=== PATIENT | female | born 1945 | race Caucasian/White ===

== ENCOUNTER 2016-11-25 12:26 | Inpatient (IN) | payer OTHER ==
[2016-11-26] MEDS ORDERED: NORMAL SALINE 10 ML SYRINGE FLUSH IVP PRN (14:30)
[2016-11-26] MEDS ORDERED: CALCIUM CARBONATE 500 MG (TUMS) CHEWABLE TABLET PO PRN (14:30)
[2016-11-26] MEDS ORDERED: LIDOCAINE W/ SODIUM BICARB 0.5 ML SYR SUBD PRN (14:30)
[2016-11-26] MEDS ORDERED: ONDANSETRON 4 MG/2 ML VIAL IVP PRN (14:30)
[2016-11-26] MEDS ORDERED: ACETAMINOPHEN 325 MG TABLET PO PRN (14:30)
[2016-11-29] MEDS ORDERED: LIDOCAINE W/ SODIUM BICARB 0.5 ML SYR SUBD PRN (13:16)
[2016-11-29] MEDS ORDERED: NORMAL SALINE 10 ML SYRINGE FLUSH IVP PRN (13:16)
[2016-11-29] MEDS ORDERED: ONDANSETRON 4 MG/2 ML VIAL IVP PRN (13:16)
[2016-11-29 14:11] LABS: BUN/CREATININE RATIO 25.83 (6-20); CALCIUM 9.1 mg/dL (8.7-10.7)
--- NOTE | 2016-11-29 14:12 | PDOC ---
History and Physical - History of Present Illness Date and Time of Service: 11/29/2016 2:13 PM Chief Complaint: Left arm pain secondary to left humeral fracture that happened last week, patient was transferred from another hospital to have surgery here. History of Present Illness: This is a 71 years old female with medical history significant for history of diabetes, hypertension, hypothyroidism and hyperlipidemia who fell last Tuesday at home she said she rolled out of bed and hit the left shoulder against a dresser she remained she said maybe an hour on the floor before she was able to get up, the pain continued but she didn't present to a hospital until the next day. She presented to [facility] evaluation there revealed closed comminuted displaced left proximal humerus fracture, she was admitted there because she was unable to go home because of pain and in the ER there her blood sugar was 554 attributed to her not giving herself insulin because of the fracture. She was admitted there they put her on insulin and pain medication. The case was discussed with Dr. Angel who discussed it with a surgeon in [place] and they are planning for her to have surgery done on Tuesday. Patient was transferred here for that reason. She said her pain level was high en Route but now she doesn't have any pain. She lives by herself, she uses a cane she denied chest pain or shortness of breath. Her pain is mainly in the left arm and left shoulder with movement. There is a big bruise there. Last time she said she had a bowel movement was 5 days ago. In assessing her functional capacity she said she can climb more than 2 flights of stairs before the fall. Past Medical History Medical History: 1. Diabetes on insulin. 2. Hypertension. 3. Hypothyroidism. 4. Hyperlipidemia Surgical History: Skin cancer removed from left forearm Pertinent Family History: Diabetes in her grandfather and grandmother Past Social History: She smokes about 20 cigarettes a day, occasionally drink, no drugs. She lives in [place] sometimes her a 95-year-old mother stays with her. Her mother currently is in [place] with her other sister. Her son lives in [place] and the other daughter lives in [place]. Tobacco Use: Current Every Day Smoker Do you dip or chew tobacco: No Substance Use Type: None Alcohol Use: Occasionally Medication / Allergies Allergies/Adverse Reactions: Allergies Allergy/AdvReac Type Severity Reaction Status Date / Time NKDA AdvReac NOT Uncoded 11/29/16 18:33 APPLICABLE Review of Systems - Review of Systems All Systems: Reviewed & No Additional Complaints Except as Stated Exam - Vitals Vital Signs: Vital Signs Temperature 98.7 F Temperature Source Oral Pulse Rate [Apical] 70 Pulse Rate [Pulse Oximeter] 70 Respiratory Rate 20 Blood Pressure [Right Arm] 146/61 Pulse Ox 91 Oxygen Flow Rate 2L Oxygen Delivery Method Nasal Cannula Height 5 ft 1 in Weight 198 lb 11.2 oz - General General Appearance: POSITIVE: No Acute Distress, Cooperative, Obese Additional General Exam Details: Somewhat sleepy but arousable - Eye Eye Exam: POSITIVE: Normal Appearance - ENT ENT Exam: POSITIVE: Normal Exam - Neck Neck Exam: POSITIVE: Normal Inspection, No Lymphadenopathy - Respiratory Respiratory Exam: POSITIVE: Clear to Auscultation - Bilaterally - Cardiovascular Cardiovascular Exam: POSITIVE: RRR - GI/Abdominal GI/Abdominal Exam: POSITIVE: Normal Bowel Sounds, Non Tender, Non Distended, Soft - Rectal Rectal Exam: POSITIVE: Deferred - External Exam: POSITIVE: Deferred - Extremities Additional Extremities Exam Details: Deformity with bruising of the left upper forearm and the left side of the chest and on the side of the left breast - Back Back Exam: POSITIVE: Normal Inspection - Neurological Neurological Exam: POSITIVE: Alert, CN II-XII Intact Additional Neurological Exam Details: He knows the month the date and the year. She thought that today is Tuesday. However she got Ativan and morphine before she came in. - Psychiatric Psychiatric Exam: POSITIVE: Normal Affect - Integumentary Additional Integumentary Exam Details: Bruise noted on the left upper forearm and the left upper chest and breasts. Few bruises on the right forearm. Results - Labs CBC and BMP: 11/29/16 13:57 11/29/16 13:57 - EKG Data -: EKG Interpreted by Me Rate: Normal - EKG Data EKG Interpretation: Other (Poor R-wave progression in the anterior leads) - Imaging Status: Report Reviewed by Me (Chest x-ray done at the other hospital was negative for specific acute cardiopulmonary pathology. Left glenohumeral fracture/dislocation. Left humerus x-ray showed comminuted fracture through the humeral head and neck. There is a displaced fracture segment. There is a dislocation of the shoulder as well. CT of the upper extremity showed comminuted to humeral head and neck fracture with the fracture fragment displacement and slight subluxation of the joint) Assessment and Plan - Patient Problems (1) Left humeral fracture Current Visit: Yes Status: Acute Comment: Discussed with Dr. Angel, he will see the patient. Per my discussion with him surgery will be done by Dr. Harkins from [facility] the plan is to have it done on Tuesday. Will order some lab test and write for pain medications. Estimating her revised Mackay cardiac risk index she has one risk factor that I can see which is diabetes requiring insulin, the EKG shows maybe 1 Q waves in lead 3 and regarding the anterior leads it's more like poor R-wave progression I think, if we count only diabetes here risk is 1% if we consider the EKG abnormal although I don't see pathological Q-wave her rate for adverse events is 2.4% to 3.6%. Her highest creatinine is 1.7. We will repeat today. Since her functional capacity is more than 4 Mets the guideline suggest no further testing so we'll follow the recommendation. Besides in discussing risks with her she said she will not do a stress test anyway (2) Diabetes Current Visit: Yes Status: Acute Comment: We will put her on Lantus and sliding scale (3) Hypertension Current Visit: Yes Status: Acute Comment: Continue previous medications for now. We may hold the ramipril on the day of the surgery (4) Hypothyroidism Current Visit: Yes Status: Acute Comment: Same medications (5) Chronic renal failure, stage 3 (moderate) Current Visit: Yes Status: Acute Comment: Per my discussion with the hospitalist at [place] she has chronic renal failure and her creatinine is similar to her previous baseline. Repeat her labs today. (6) Confusion Current Visit: Yes Status: Acute Comment: The notes from my weekend described episode of confusion at their hospital this may be medication related but I think will do CAT scan of her head. Photo / Body Diagrams - Uploaded Photos Uploaded Photos:
[2016-11-29] MEDS: Lactated Ringers 1,000 ML PRIMARY IV SCH ×4 (14:20→14:45)
[2016-11-29 14:21] LABS: BASOPHILS % (AUTO) 0.3 % (0-1); EOSINOPHILS % (AUTO) 1.8 % (0-8); HEMOGLOBIN 12.3 g/dL (12.0-16.0); LYMPHOCYTES # (AUTO) 1.25 10*3/uL; MEAN CORPUSCULAR HEMOGLOBIN 29.6 PG (27-31); MEAN CORPUSCULAR HGB CONC 32.4 g/dL (33-37); MEAN CORPUSCULAR VOLUME 91.3 FL (81-99); MEAN PLATELET VOLUME 10.9 FL (7.4-12.2); MONOCYTES # (AUTO) 1.18 10*3/UL (0.3-0.8); MONOCYTES % (AUTO) 12.7 % (5-15); NEUTROPHILS # (AUTO) 6.65 10*3/UL; NEUTROPHILS % (AUTO) 71.4 % (50-80); RED BLOOD COUNT 4.16 10^6/uL (4.20-5.40)
[2016-11-29 14:22] LABS: BASOPHILS # (AUTO) 0.03 10*3/UL; EOSINOPHILS # (AUTO) 0.17 10*3/UL; PLATELET MORPHOLOGY COMMENT NORMAL MORPHOLOGY (NORM); RBC MORPHOLOGY COMMENT NORMAL MORPHOLOGY (NORM); WBC MORPHOLOGY COMMENT NORMAL MORPHOLOGY (NORM)
--- NOTE | 2016-11-29 16:13 | EKG ---
[address] [place] [address] Measurements Intervals [place] Rate: 68 P: 53 LA: 151 QRS: 13 QRSD: 85 T: 43 QT: 412 QTc: 430 Interpretive Statements SINUS RHYTHM POSSIBLE ANTERIOR MYOCARDIAL INFARCTION [30 ms Q WAVE IN V3/V4, OR R < 0.2 mV IN V4], OF INDETERMINATE AGE No previous ECG available for comparison Electronically Signed On 11-29-16 17:03:38 MDT by Zechariah Matthew MD [email or web address]
--- NOTE | 2016-11-29 17:42 | DI ---
HISTORY: Confusion. COMPARISON: None available. TECHNIQUE: Contiguous axial unenhanced images of the brain were obtained from the skull base through the vertex and submitted for interpretation. FINDINGS: The ventricles and sulci are within normal limits in size for the patient's age. There is no evidence of acute intracranial hemorrhage, mass effect, midline shift, or extra-axial fluid colle ction. No abnormal increased or decreased areas of attenuation are seen within the brain. There are no depressed calvarial fractures. The orbits and visualized facial bones are intact. The imaged paranasal sinuses are unremarkable as seen. IMPRESSION: 1. No evidence of acute intracranial abnormality. NOTIFICATION: The above report was sent to Fadia Sharp on 11/29/2016 at 08:11 PM EST.
[2016-11-29] MEDS: Insulin Lispro Flexpen 300 UNIT/3 ML INSULN.PEN SUBCUT SCH (18:19)
[2016-11-29] MEDS: oxyCODONE-ACETAMINOPHEN 5-325 TAB PO PRN (18:49)
[2016-11-29] MEDS: ATORVASTATIN 40 MG TABLET PO SCH (20:12)
[2016-11-29] MEDS: DOCUSATE 100 MG CAPSULE PO SCH (20:13)
[2016-11-29] MEDS: Insulin Glargine SoloStar Inj 100 UNIT/ML INSULN.PEN SUBCUT SCH (20:13)
[2016-11-30] MEDS: oxyCODONE-ACETAMINOPHEN 5-325 TAB PO PRN ×6 (05:03→23:35)
[2016-11-30] MEDS: Insulin Lispro Flexpen 300 UNIT/3 ML INSULN.PEN SUBCUT SCH ×3 (07:52→16:37)
--- NOTE | 2016-11-30 08:40 | PDOC(PROG) ---
Date and Time of Service: 11/30/2016 8:36 AM Interval History: Subjective Patient denying new symptoms. Pain seemed to be controlled with current pain medications. The nurses did report some confusion last night, she doesn't seem to be confused today. Objective : Data - Labs CBC and BMP: 11/29/16 13:57 11/29/16 13:57 Labs - Last 24 Hours: Laboratory Results 11/29/16 11/30/16 Range/Units 13:57 06:10 WBC 9.32 (4.8-10.8) 10^3/uL RBC 4.16 L (4.20-5.40) 10^6/uL Hgb 12.3 (12.0-16.0) g/dL Hct 38.0 (37.0-47.0) % MCV 91.3 (81-99) FL MCH 29.6 (27-31) PG MCHC 32.4 L (33-37) g/dL RDW Std Deviation 48.6 (39-50) fL RDW Coeff of Neftali 14.9 H (11.5-14.5) % Plt Count 390 H (140-350) 10*3/uL MPV 10.9 (7.4-12.2) FL Immature Gran % (Auto) 0.4 (0-5) % Neut % (Auto) 71.4 (50-80) % Lymph % (Auto) 13.4 (10-50) % [place] % (Auto) 12.7 (5-15) % Eos % (Auto) 1.8 (0-8) % Baso % (Auto) 0.3 (0-1) % Immature Gran # (Auto) 0.04 10*3/UL Neut # (Auto) 6.65 10*3/UL Lymph # (Auto) 1.25 10*3/uL [place] # (Auto) 1.18 H (0.3-0.8) 10*3/UL Eos # (Auto) 0.17 10*3/UL Baso # (Auto) 0.03 10*3/UL WBC Morphology Comment Normal morphology (NORM) Plt Morphology Comment Normal morphology (NORM) RBC Morph Comment Normal morphology (NORM) PT 9.7 (9.7-11.4) secs INR 0.94 (0.00-5.90) N/A Sodium 131 L (135-145) meq/L Potassium 5.0 (3.8-5.2) meq/L Chloride 99 (98-112) meq/L Carbon Dioxide 24 (23-33) meq/L Anion Gap 8 (5-20) BUN 31 H (7-22) mg/dL Creatinine 1.2 (0.50-1.20) mg/dL Estimated GFR 44 (>60 ml/min/1.73m(2)) BUN/Creatinine Ratio 25.83 H (6-20) Glucose 233 H (78-110) mg/dL Calculated Osmolality 285.0 (267-292) mOsm/kg Calcium 9.1 (8.7-10.7) mg/dL Objective : Exam - General General Appearance: No Acute Distress, Cooperative, Obese - Head Head Exam: Normal Inspection, Atraumatic - Eye Eye Exam: Normal Appearance - ENT ENT Exam: Normal Exam - Neck Neck Exam: Normal Inspection - Respiratory Respiratory Exam: Clear to Auscultation - Bilaterally - Cardiovascular Cardiovascular Exam: RRR - GI/Abdominal GI/Abdominal Exam: Normal Bowel Sounds, Non Tender, Non Distended, Soft - Rectal Rectal Exam: Deferred - External Exam: Deferred - Extremities Additional Extremities Exam Details: Extensive ecchymosis to the left arm and shoulder. - Back Back Exam: Normal Inspection - Neurological Neurological Exam: Alert, Oriented x 3, CN II-XII Intact - Psychiatric Psychiatric Exam: Normal Affect Assessment and Plan - Patient Problems (1) Left humeral fracture Current Visit: Yes Status: Acute Comment: Discussed with Dr. Angel the plan is for surgery tomorrow. We'll keep her nothing by mouth after midnight tonight. (2) Diabetes Current Visit: Yes Status: Chronic Comment: I Think we'll continue with the insulin, will add D5 and a half after midnight tonight (3) Hypertension Current Visit: Yes Status: Chronic Comment: Continue same medication. Will hold ramipril on the day with surgery (4) Hypothyroidism Current Visit: Yes Status: Acute Comment: Same medications (5) Chronic renal failure, stage 3 (moderate) Current Visit: Yes Status: Chronic Comment: Creatinine seemed to be improved. (6) Confusion Current Visit: Yes Status: Acute Comment: This may be related to medications, will check a B12 level. CT scan was negative. And to get more information from family and see of the noticed any memory issues which may suggest an underlying dementia. Photo / Body Diagrams - Uploaded Photos Uploaded Photos:
[2016-11-30] MEDS: METOPROLOL SUCCINATE 100 MG SR 24H TABLET PO SCH (08:45)
[2016-11-30] MEDS: DOCUSATE 100 MG CAPSULE PO SCH ×2 (08:46→20:26)
[2016-11-30] MEDS: POLYETHYLENE GLYCOL 3350 17 GM POWDER PO SCH (08:47)
[2016-11-30] MEDS ORDERED: RAMIPRIL 2.5 MG CAPSULE PO SCH (09:00)
--- NOTE | 2016-11-30 16:47 | PTI REPORT ---
Thank you for the referral of Danitza Brandon. She was seen on 11/30/16 for an inpatient evaluation secondary to a left humeral fracture. SUBJECTIVE: The patient is a 71-year-old female who was referred by Dr. Escobedo secondary to a left humeral fracture. The patient states she lives alone in [place] in a trailer house where she slipped and fell a couple of days ago and broke her arm. She does not use any assistive devices but does have a cane and states she has fallen a couple of times over the last calendar year. She has three steps on one side of her trailer house to get in and four on the other side. She does not have any immediate family close to [facility] and has a son in [place] and a daughter in [place]. The patient was not wearing her arm sling due to pain and she states her arm sling creates pain and she has tried to wear it and be compliant for four days and it is just not working. She is scheduled for orthopedic surgery on that arm tomorrow morning. PAST MEDICAL HISTORY: Past medical history can be found in the patient's medical record. OBJECTIVE FINDINGS: General observations: The patient was alert and oriented when interviewed in her room this afternoon. She had just been given a pain pill a few minutes earlier. Pain: The patient rates her pain as a 6 or 7 out of 10 on the verbal analog scale (0=no pain, 10=worst pain). The patient states she has had a history of sore knees and a sore back and felt very stiff today. Bed mobility: The patient required moderate assist to come from supine to sit due to pain. Transfers: The patient required moderate assist to come from sit to stand. The patient did not really complain of pain during her transfer. The patient stood up with assist of one. Balance: Balance was poor and and will need supervision and assist of one at all times following the hospital. She is a MODERATE risk for falls. A Hooper score was not provided secondary to her pain medication and her shoulder pain. Ambulation: The patient ambulated to the doorway and back with maximum assist of one therapist hanging on to the right upper extremity. She would probably benefit from the use of a quad cane or shila walker. ASSESSMENT: Problem List: Increased pain Decreased balance Decreased ability to perform activities of daily living Decreased ability to perform transfers Short-Term Goals: To be met by discharge from inpatient: Patient will be able to perform bed mobility and transfers with stand by assistance. Patient will have a pain level less than or equal to 4/10 with activity. Patient will have balance of fair or greater. Patient will be able to ambulate household distances with least restrictive assistive device. Long-Term Goals: To be met following discharge from inpatient: Patient will be placed in the safest environment possible as independent as possible. TREATMENT PLAN: Patient will be seen B.I.D during the week and one time per day over the weekend as an inpatient for pain relief modalities as needed, transfers, ambulation, strengthening of lower extremities and right upper extremity, and functional activities. There will be discussion on proper discharge placement for her safest well being post operatively. INITIAL TREATMENT: Treatment today consisted of the initial evaluation activities only. FAHAD
[2016-11-30] MEDS: Insulin Glargine SoloStar Inj 100 UNIT/ML INSULN.PEN SUBCUT SCH (20:09)
[2016-11-30] MEDS: ATORVASTATIN 40 MG TABLET PO SCH (20:09)
[2016-12-01] MEDS ORDERED: D5-1/2NS 1,000 ML PRIMARY IV SCH ×2 (01:00→12:00)
[2016-12-01] MEDS ORDERED: Lactated Ringers 1,000 ML PRIMARY IV ONE (01:25)
[2016-12-01] MEDS ORDERED: BUPIVACAINE 0.25% W/ EPI - 10 ML VIAL ONE ×2 (05:54→06:58)
[2016-12-01] MEDS ORDERED: Vancomycin Inj 1gm vial ONE (05:55)
[2016-12-01] MEDS ORDERED: TRANEXAMIC ACID 1,000 MG / 10 ML VIAL ONE ×2 (05:55→06:05)
[2016-12-01] MEDS ORDERED: Sodium Chloride 0.9% 100 ML IV ONE (06:05)
[2016-12-01] MEDS ORDERED: Sodium Chloride 0.9% 0 ML ONE (06:16)
[2016-12-01] MEDS ORDERED: Sodium Chloride 0.9% 250 ML IV ONE (06:16)
[2016-12-01] MEDS ORDERED: LIDOCAINE W/ SODIUM BICARB 0.5 ML SYR ONE (06:20)
[2016-12-01] MEDS ORDERED: fentaNYL Inj 250 MCG/5 ML VIAL ONE (06:57)
[2016-12-01] MEDS ORDERED: cloNIDine HCL/PF 100 MCG/ML - 10 ML VIAL EPIDURAL ONE (06:57)
[2016-12-01] MEDS ORDERED: MIDAZOLAM 5 MG/1 ML ONE (06:58)
[2016-12-01] MEDS ORDERED: ROCURONIUM 10 MG/1 ML - 5 ML VIAL IVP ONE (07:19)
[2016-12-01] MEDS ORDERED: ceFAZolin Inj 2gm (Premix) 50 ML IV ONE (07:20)
--- NOTE | 2016-12-01 07:39 | ORTHO.PROG ---
Last Taken Vital Signs: Vital Signs - Last Taken Temperature 97.7 F 12/01/16 03:01 Pulse Rate 74 12/01/16 03:01 Respiratory Rate 20 12/01/16 03:01 Blood Pressure 156/68 12/01/16 03:01 Pulse Ox 1 12/01/16 04:55 Subjective: 71 yo RHD female s/p fall from bed sustaining an injury to the left shoulder. She has a neurovascularly intact left proximal humerus 4 part fracture dislocation. She was counseled extensively regarding the treatment options and is planned for a left shoulder reverse total shoulder arthroplasty. The risks, benefits, expected outcome, and required rehabilitation were discussed. All questions were answered. Informed consent was obtained. Gordon Harkins MD Orthopedic Surgery
[2016-12-01] MEDS ORDERED: ePHEDrine Inj 50 MG/ML AMP ONE (08:04)
[2016-12-01] MEDS ORDERED: ONDANSETRON 4 MG/2 ML VIAL ONE (09:44)
[2016-12-01] MEDS ORDERED: NORMAL SALINE 10 ML SYRINGE FLUSH IVP PRN ×4 (09:48→12:00)
[2016-12-01] MEDS ORDERED: PROMETHAZINE 25 MG/1 ML VIAL IM PRN ×2 (09:48→12:00)
[2016-12-01] MEDS ORDERED: HYDROmorphone 2 MG/1 ML IVP PRN ×2 (09:48→12:00)
[2016-12-01] MEDS ORDERED: fentaNYL Inj 100 MCG/2 ML VIAL IVP PRN ×2 (09:48→12:00)
--- NOTE | 2016-12-01 09:48 | CRNA.PROCE ---
Nerve Block Documentation - - Safety Measures: Time Out Taken, Site Verified - - Type of Nerve Block Used: Left Interscalene Block Position for Nerve Block: Supine Moniters Used During Block: EKG, SPO2, NIBP Oxygen Sumpplented: Yes Sedation Used - Enter Amount in Comment Field: Midazolam (mg): Yes (2mg iv), Fentanyl (mcg): Yes (50mcg iv) Skin Prep Used: ChloroPrep Technique: Nerve Stimulator Nerve Block Needle Used: 40 mm ProBlk II Stimulation Hz: 1.0 Stimulation Staring mA: 1.0 Stimulation Ending mA: 0.5 Local Anesthetic - Enter Amt in Comment Field: 0.25 % Bupivicaine with Epinephrine 1:200,000 (mL): Yes (30ml) Additives to Nerve Blocks: Clonidine (mg): Yes (.2mg)
[2016-12-01] MEDS ORDERED: Lactated Ringers 1,000 ML PRIMARY IV SCH ×2 (10:00→12:00)
[2016-12-01] MEDS ORDERED: Sodium Chloride 0.9% 1,000 ML PRIMARY IV SCH (12:00)
[2016-12-01] MEDS ORDERED: ONDANSETRON 4 MG/2 ML VIAL IVP PRN ×2 (12:00)
[2016-12-01] MEDS ORDERED: CALCIUM CARBONATE 500 MG (TUMS) CHEWABLE TABLET PO PRN (12:00)
[2016-12-01] MEDS ORDERED: LIDOCAINE W/ SODIUM BICARB 0.5 ML SYR SUBD PRN (12:00)
--- NOTE | 2016-12-01 12:24 | DI ---
AP VIEW OF THE LEFT SHOULDER, 12/01/2016 10:53 AM: Clinical History: Status post total reverse shoulder replacement secondary to a severely comminuted f racture of the humeral head and neck sustained on 11/24/2016. Previous Exam: None at this facility. Comparison is made with films of the left humerus dated 11/25/19 17, from [facility] [place], [place]. A single projection reveals the patient to be status post total left reverse shoulder replacement. Th e prosthetic device articulates normally. There is left lower lobe atelectasis. Readin. Status post total reverse shoulder replacement. The prosthetic device articulates normally. 2. Left lower lobe atelectasis.
[2016-12-01] MEDS: METOPROLOL SUCCINATE 100 MG SR 24H TABLET PO SCH (12:37)
[2016-12-01] MEDS: DOCUSATE 100 MG CAPSULE PO SCH ×2 (12:39→20:44)
[2016-12-01] MEDS: Insulin Lispro Flexpen 300 UNIT/3 ML INSULN.PEN SUBCUT SCH ×2 (12:40→16:43)
[2016-12-01] MEDS: POLYETHYLENE GLYCOL 3350 17 GM POWDER PO SCH (12:41)
--- NOTE | 2016-12-01 12:51 | PDOC(PROG) ---
Date and Time of Service: 12/01/2016 12:59 PM Interval History: Subjective Patient was seen after her surgery, she is denying complaint there is no pain, no shortness of breath and no nausea. Objective : Data - Labs CBC and BMP: 11/29/16 13:57 11/29/16 13:57 Labs - Last 24 Hours: Laboratory Results 11/30/16 Range/Units 06:00 Vitamin B12 598 ([id number]) pg/mL Objective : Exam - General General Appearance: No Acute Distress, Cooperative, Obese - Head Head Exam: Normal Inspection - Eye Eye Exam: Normal Appearance - ENT ENT Exam: Normal Exam - Neck Neck Exam: Normal Inspection - Respiratory Respiratory Exam: Clear to Auscultation - Bilaterally - Cardiovascular Cardiovascular Exam: RRR - GI/Abdominal GI/Abdominal Exam: Normal Bowel Sounds, Non Tender, Non Distended, Soft - Rectal Rectal Exam: Deferred - External Exam: Deferred - Extremities Additional Extremities Exam Details: Left arm pain and shoulder immobilizer - Back Back Exam: Normal Inspection - Neurological Neurological Exam: Alert, Oriented x 3, CN II-XII Intact - Psychiatric Psychiatric Exam: Normal Affect Assessment and Plan - Patient Problems (1) Left humeral fracture Current Visit: Yes Status: Acute Comment: Status post left total reverse hemiarthroplasty, PT and OT were ordered. I did talk to her and the family about maybe needing swing bed versus a rehabilitation somewhere else they will think about it. I did speak with our case monitor about it. I did speak with Dr. Harkins and he wanted to see her in 2 weeks from now. (2) Diabetes Current Visit: Yes Status: Chronic Comment: Same medications (3) Hypertension Current Visit: Yes Status: Chronic Comment: We'll hold off on the enalapril for now will resume the metoprolol tomorrow. (4) Hypothyroidism Current Visit: Yes Status: Acute Comment: Same med (5) Chronic renal failure, stage 3 (moderate) Current Visit: Yes Status: Chronic Comment: Repeat her labs tomorrow (6) Confusion Current Visit: Yes Status: Acute Comment: I did talk to the family they did say she did not have confusion before and this only was noticed after she was put on pain medication. Photo / Body Diagrams - Uploaded Photos Uploaded Photos:
[2016-12-01] MEDS: oxyCODONE-ACETAMINOPHEN 5-325 TAB PO PRN ×3 (13:07→20:55)
[2016-12-01] MEDS: Lactated Ringers 1,000 ML PRIMARY IV SCH (15:16)
[2016-12-01] MEDS: ceFAZolin Inj 2gm (Premix) 2 GM in Dextrose 1 BAG IV SCH ×2 (16:07→23:58)
[2016-12-01] MEDS: MORPHINE SULFATE 2 MG/1 ML IVP PRN ×2 (16:07→22:04)
--- NOTE | 2016-12-01 16:59 | OTI REPORT ---
Thank you for the referral of Danitza Brandon. She was seen on 11/29/16 for an occupational therapy inpatient evaluation secondary to a left humeral fracture. SUBJECTIVE: The patient is a 71-year-old female who lives by herself in [place]. Prior to admission the patient states she was doing most ADLs within her home independently. The patient's family was present for part of the evaluation today. The patient was in the [facility] for other medical reasons and was transferred to [place] to have the surgery. The patient did demonstrate confusion today and was appropriate with only approximately 50% of her answers. PAST MEDICAL HISTORY: Past medical history can be found in the patient's medical record. OBJECTIVE FINDINGS: General observations: The therapist was called to place brace on the patient. The patient demonstrated some impulsivity and decreased cognition when asked to complete one step requests. The patient did state that she felt better once the brace was on. The patient reported that she needed to use the restroom. Transfers: The patient required max assist x2 in order to transfer from the bed to the commode. She had difficulty moving her lower extremities. Pain: The patient stated that her pain was pretty high, but she was unable to rate her pain on the verbal analog scale (0=no pain, 10=worst pain). Strength: Strength in the right upper extremity was 3/5. Cognition: Today the patient is definitely cognitively impaired. She demonstrated confusion throughout the session. The patient was not being compliant with her brace. She was impulsive with taking her brace off and on. Activities of daily living: The patient requires max assist for dressing lower and upper extremities. Balance: The patient requires max assist for standing balance. ASSESSMENT: The patient will be having surgery within the next day or two on her left humerus. Problem List: Decreased ability to perform activities of daily living Decreased upper extremity range of motion Decreased upper extremity strength Decreased ability to perform functional transfers Short-Term Goals: To be met by discharge from inpatient: Patient will be able to dress self including upper extremities with min assist. Patient will be able to dress lower extremities with min assist. Patient will be able to perform ambulation and a toilet transfer with min assist. Patient will be able to complete toilet hygiene with adaptive equipment independently. Patient will be able to walk to sink and complete simple hygiene activities x5 minutes. Long-Term Goals: To be met following discharge from inpatient: Occupational therapist and team will assist with proper placement for patient after her surgery. She may need longer rehabilitation secondary to her cognitive status and living at home by herself. TREATMENT PLAN: Patient will be seen B.I.D during the week and one time per day over the weekend following left humeral surgery to address the above goals and objectives. INITIAL TREATMENT: Treatment today consisted of the initial evaluation followed by the patient, staff, and family being educated on donning brace. The patient then had to use the restroom. The therapist assisted the patient with commode transfer. The patient was incontinent and did not know it. The patient needed max assist x2 in order to get to the commode. She demonstrated poor proprioceptive input through the lower extremities and continued to march in place for approximately one minute before she would even move her feet. Once sitting on the commode she thought her bowel movement on the bed was blood and reached for it. The therapist assisted with clean up. She was dependent with bowel movement hygiene. The patient was dependent with placing brace on left arm. The patient then transferred back to bed with max assist x2. Staff and family was educated on how to place brace on arm and a copy of the written instructions were placed on the board in her room. FAHAD
[2016-12-01] MEDS: ATORVASTATIN 40 MG TABLET PO SCH (20:43)
[2016-12-01] MEDS: Insulin Glargine SoloStar Inj 100 UNIT/ML INSULN.PEN SUBCUT SCH (20:43)
[2016-12-01] MEDS ORDERED: DOCUSATE 100 MG CAPSULE PO SCH (21:00)
[2016-12-02] MEDS: oxyCODONE-ACETAMINOPHEN 5-325 TAB PO PRN ×5 (00:40→20:47)
[2016-12-02 05:00] LABS: BASOPHILS # (AUTO) 0.04 10*3/UL; BASOPHILS % (AUTO) 0.2 % (0-1); HEMOGLOBIN 12.8 g/dL (12.0-16.0); MEAN PLATELET VOLUME 10.9 FL (7.4-12.2); NEUTROPHILS % (AUTO) 74.5 % (50-80)
[2016-12-02 05:02] LABS: EOSINOPHILS # (AUTO) 0.14 10*3/UL; EOSINOPHILS % (AUTO) 0.8 % (0-8); LYMPHOCYTES # (AUTO) 1.78 10*3/uL; MEAN CORPUSCULAR HEMOGLOBIN 30.3 PG (27-31); MEAN CORPUSCULAR HGB CONC 33.7 g/dL (33-37); MEAN CORPUSCULAR VOLUME 89.8 FL (81-99); MONOCYTES # (AUTO) 2.38 10*3/UL (0.3-0.8); MONOCYTES % (AUTO) 13.6 % (5-15); NEUTROPHILS # (AUTO) 13.02 10*3/UL; RED BLOOD COUNT 4.23 10^6/uL (4.20-5.40)
[2016-12-02 05:04] LABS: PLATELET MORPHOLOGY COMMENT NORMAL MORPHOLOGY (NORM); RBC MORPHOLOGY COMMENT NORMAL MORPHOLOGY (NORM); WBC MORPHOLOGY COMMENT NORMAL MORPHOLOGY (NORM)
[2016-12-02 05:08] LABS: CALCIUM 9.3 mg/dL (8.7-10.7)
[2016-12-02] MEDS: MORPHINE SULFATE 2 MG/1 ML IVP PRN (07:06)
[2016-12-02] MEDS: Insulin Lispro Flexpen 300 UNIT/3 ML INSULN.PEN SUBCUT SCH ×3 (07:11→16:56)
--- NOTE | 2016-12-02 07:55 | ORTHO.PROG ---
Last Taken Vital Signs: Vital Signs - Last Taken Temperature 98.6 F 12/02/16 05:00 Pulse Rate 120 H 12/02/16 05:00 Respiratory Rate 20 12/02/16 05:00 Blood Pressure 163/82 12/02/16 05:00 Pulse Ox 94 12/02/16 05:03 Subjective: Patient notes that she is aware limp and has pain still, but better Objective: Patient has dressing in place, she has a normal sensory exam in the upper extremity including upper lateral brachial cutaneous, musculocutaneous and ulnar nerves normal sensory exam normal motor finger wrist or elbow produces some discomfort in the shoulder region. Just a gentle motion. Good pulses and brisk refill Laboratory Results 12/02/16 Range/Units 04:33 WBC 17.49 H (4.8-10.8) 10^3/uL RBC 4.23 (4.20-5.40) 10^6/uL Hgb 12.8 (12.0-16.0) g/dL Hct 38.0 (37.0-47.0) % MCV 89.8 (81-99) FL MCH 30.3 (27-31) PG MCHC 33.7 (33-37) g/dL RDW Std Deviation 45.7 (39-50) fL RDW Coeff of Neftali 14.4 (11.5-14.5) % Plt Count 511 H (140-350) 10*3/uL MPV 10.9 (7.4-12.2) FL Immature Gran % (Auto) 0.7 (0-5) % Neut % (Auto) 74.5 (50-80) % Lymph % (Auto) 10.2 (10-50) % [place] % (Auto) 13.6 (5-15) % Eos % (Auto) 0.8 (0-8) % Baso % (Auto) 0.2 (0-1) % Immature Gran # (Auto) 0.13 10*3/UL Neut # (Auto) 13.02 10*3/UL Lymph # (Auto) 1.78 10*3/uL [place] # (Auto) 2.38 H (0.3-0.8) 10*3/UL Eos # (Auto) 0.14 10*3/UL Baso # (Auto) 0.04 10*3/UL WBC Morphology Comment Normal morphology (NORM) Plt Morphology Comment Normal morphology (NORM) RBC Morph Comment Normal morphology (NORM) Sodium 128 L (135-145) meq/L Potassium 5.1 (3.8-5.2) meq/L Chloride 97 L (98-112) meq/L Carbon Dioxide 20 L (23-33) meq/L Anion Gap 11 (5-20) BUN 18 (7-22) mg/dL Creatinine 1.0 (0.50-1.20) mg/dL Estimated GFR 55 (>60 ml/min/1.73m(2)) BUN/Creatinine Ratio 18.00 (6-20) Glucose 217 H (78-110) mg/dL Calculated Osmolality 274.0 (267-292) mOsm/kg Calcium 9.3 (8.7-10.7) mg/dL Radiograph show well located reverse total shoulder with portion of rotator cuff sleeve and bone attached the prosthesis Assessment: Left proximal humerus fracture with reverse shoulder prostheses doing well Plan: Patient will be kept in a sling protect the arm. We will have the patient try to get better pain control. We will look at long-term placement whether it is in the swing bed here or rehabilitation hospital in [place] or [place]. Patient to follow up with Dr. Harkins in approximately 2 weeks. I will follow the patient while she is in [place].
--- NOTE | 2016-12-02 08:38 | CRNA.PROGR ---
Anesthesia Note Anesthesia Progress Note: She is sitting up in bed eating breakfast. AAO, and has no questions or concerns regarding her anesthetic course. Her ISB resolved approximately 0400 per her. Laboratory Results 11/29/16 11/30/16 11/30/16 Range/Units 13:57 06:00 06:10 WBC 9.32 (4.8-10.8) 10^3/uL RBC 4.16 L (4.20-5.40) 10^6/uL Hgb 12.3 (12.0-16.0) g/dL Hct 38.0 (37.0-47.0) % MCV 91.3 (81-99) FL MCH 29.6 (27-31) PG MCHC 32.4 L (33-37) g/dL RDW Std Deviation 48.6 (39-50) fL RDW Coeff of Neftali 14.9 H (11.5-14.5) % Plt Count 390 H (140-350) 10*3/uL MPV 10.9 (7.4-12.2) FL Immature Gran % (Auto) 0.4 (0-5) % Neut % (Auto) 71.4 (50-80) % Lymph % (Auto) 13.4 (10-50) % [place] % (Auto) 12.7 (5-15) % Eos % (Auto) 1.8 (0-8) % Baso % (Auto) 0.3 (0-1) % Immature Gran # (Auto) 0.04 10*3/UL Neut # (Auto) 6.65 10*3/UL Lymph # (Auto) 1.25 10*3/uL [place] # (Auto) 1.18 H (0.3-0.8) 10*3/UL Eos # (Auto) 0.17 10*3/UL Baso # (Auto) 0.03 10*3/UL WBC Morphology Comment Normal morphology (NORM) Plt Morphology Comment Normal morphology (NORM) RBC Morph Comment Normal morphology (NORM) PT 9.7 (9.7-11.4) secs INR 0.94 (0.00-5.90) N/A Sodium 131 L (135-145) meq/L Potassium 5.0 (3.8-5.2) meq/L Chloride 99 (98-112) meq/L Carbon Dioxide 24 (23-33) meq/L Anion Gap 8 (5-20) BUN 31 H (7-22) mg/dL Creatinine 1.2 (0.50-1.20) mg/dL Estimated GFR 44 (>60 ml/min/1.73m(2)) BUN/Creatinine Ratio 25.83 H (6-20) Glucose 233 H (78-110) mg/dL Calculated Osmolality 285.0 (267-292) mOsm/kg Calcium 9.1 (8.7-10.7) mg/dL Vitamin B12 598 (239-931) pg/mL Blood Type A POSITIVE Antibody Screen Negative 12/02/16 Range/Units 04:33 WBC 17.49 H (4.8-10.8) 10^3/uL RBC 4.23 (4.20-5.40) 10^6/uL Hgb 12.8 (12.0-16.0) g/dL Hct 38.0 (37.0-47.0) % MCV 89.8 (81-99) FL MCH 30.3 (27-31) PG MCHC 33.7 (33-37) g/dL RDW Std Deviation 45.7 (39-50) fL RDW Coeff of Neftali 14.4 (11.5-14.5) % Plt Count 511 H (140-350) 10*3/uL MPV 10.9 (7.4-12.2) FL Immature Gran % (Auto) 0.7 (0-5) % Neut % (Auto) 74.5 (50-80) % Lymph % (Auto) 10.2 (10-50) % [place] % (Auto) 13.6 (5-15) % Eos % (Auto) 0.8 (0-8) % Baso % (Auto) 0.2 (0-1) % Immature Gran # (Auto) 0.13 10*3/UL Neut # (Auto) 13.02 10*3/UL Lymph # (Auto) 1.78 10*3/uL [place] # (Auto) 2.38 H (0.3-0.8) 10*3/UL Eos # (Auto) 0.14 10*3/UL Baso # (Auto) 0.04 10*3/UL WBC Morphology Comment Normal morphology (NORM) Plt Morphology Comment Normal morphology (NORM) RBC Morph Comment Normal morphology (NORM) PT (9.7-11.4) secs INR (0.00-5.90) N/A Sodium 128 L (135-145) meq/L Potassium 5.1 (3.8-5.2) meq/L Chloride 97 L (98-112) meq/L Carbon Dioxide 20 L (23-33) meq/L Anion Gap 11 (5-20) BUN 18 (7-22) mg/dL Creatinine 1.0 (0.50-1.20) mg/dL Estimated GFR 55 (>60 ml/min/1.73m(2)) BUN/Creatinine Ratio 18.00 (6-20) Glucose 217 H (78-110) mg/dL Calculated Osmolality 274.0 (267-292) mOsm/kg Calcium 9.3 (8.7-10.7) mg/dL Vitamin B12 (239-931) pg/mL Blood Type Antibody Screen Vital Signs (24 hrs) Temp Pulse Pulse Pulse Resp BP BP 12/02/16 05:03 12/02/16 05:00 98.6 F 120 H 20 163/82 12/02/16 01:00 98.4 F 111 H 20 164/78 12/01/16 21:00 98.5 F 108 H 20 173/94 12/01/16 19:00 20 12/01/16 16:47 97.7 F 93 20 87/53 12/01/16 13:30 97.6 F 92 18 104/61 12/01/16 13:00 97.2 F 92 18 118/60 12/01/16 12:55 97.2 F 81 20 102/79 12/01/16 12:40 97.0 F 70 18 99/65 12/01/16 12:25 97.0 F 76 18 92/75 12/01/16 12:15 88 18 12/01/16 12:10 96.7 F L 76 20 110/64 12/01/16 11:50 97.0 F 77 17 139/77 12/01/16 11:45 97.1 F 89 18 134/81 12/01/16 11:40 97.0 F 77 18 160/90 12/01/16 11:35 97.0 F 77 18 131/95 12/01/16 11:30 97.0 F 81 18 112/80 12/01/16 11:20 97.3 F 88 16 113/87 12/01/16 11:15 97.3 F 76 16 144/132 12/01/16 11:10 97.1 F 78 19 123/91 12/01/16 11:05 97.1 F 74 12 122/85 12/01/16 11:00 97.1 F 75 13 121/102 12/01/16 10:54 97.1 F 75 14 90/72 Pulse Ox 12/02/16 05:03 94 12/02/16 05:00 94 12/02/16 01:00 91 12/01/16 21:00 94 12/01/16 19:00 12/01/16 16:47 94 12/01/16 13:30 93 12/01/16 13:00 94 12/01/16 12:55 97 12/01/16 12:40 94 12/01/16 12:25 99 12/01/16 12:15 12/01/16 12:10 97 12/01/16 11:50 12/01/16 11:45 12/01/16 11:40 12/01/16 11:35 12/01/16 11:30 12/01/16 11:20 12/01/16 11:15 12/01/16 11:10 12/01/16 11:05 12/01/16 11:00 12/01/16 10:54
[2016-12-02] MEDS: DOCUSATE 100 MG CAPSULE PO SCH ×2 (08:45→20:07)
[2016-12-02] MEDS: RAMIPRIL 2.5 MG CAPSULE PO SCH (08:46)
[2016-12-02] MEDS: METOPROLOL SUCCINATE 100 MG SR 24H TABLET PO SCH (08:46)
[2016-12-02] MEDS: POLYETHYLENE GLYCOL 3350 17 GM POWDER PO SCH (08:47)
--- NOTE | 2016-12-02 11:06 | PDOC(PROG) ---
Interval History: Patient is doing well postop she states that she will need an not help she is unable to move denies chest pain nausea vomiting Objective : Data - Labs CBC and BMP: 12/02/16 04:33 12/02/16 04:33 Labs - Last 24 Hours: Laboratory Results 12/02/16 Range/Units 04:33 WBC 17.49 H (4.8-10.8) 10^3/uL RBC 4.23 (4.20-5.40) 10^6/uL Hgb 12.8 (12.0-16.0) g/dL Hct 38.0 (37.0-47.0) % MCV 89.8 (81-99) FL MCH 30.3 (27-31) PG MCHC 33.7 (33-37) g/dL RDW Std Deviation 45.7 (39-50) fL RDW Coeff of Neftali 14.4 (11.5-14.5) % Plt Count 511 H (140-350) 10*3/uL MPV 10.9 (7.4-12.2) FL Immature Gran % (Auto) 0.7 (0-5) % Neut % (Auto) 74.5 (50-80) % Lymph % (Auto) 10.2 (10-50) % [place] % (Auto) 13.6 (5-15) % Eos % (Auto) 0.8 (0-8) % Baso % (Auto) 0.2 (0-1) % Immature Gran # (Auto) 0.13 10*3/UL Neut # (Auto) 13.02 10*3/UL Lymph # (Auto) 1.78 10*3/uL [place] # (Auto) 2.38 H (0.3-0.8) 10*3/UL Eos # (Auto) 0.14 10*3/UL Baso # (Auto) 0.04 10*3/UL WBC Morphology Comment Normal morphology (NORM) Plt Morphology Comment Normal morphology (NORM) RBC Morph Comment Normal morphology (NORM) Sodium 128 L (135-145) meq/L Potassium 5.1 (3.8-5.2) meq/L Chloride 97 L (98-112) meq/L Carbon Dioxide 20 L (23-33) meq/L Anion Gap 11 (5-20) BUN 18 (7-22) mg/dL Creatinine 1.0 (0.50-1.20) mg/dL Estimated GFR 55 (>60 ml/min/1.73m(2)) BUN/Creatinine Ratio 18.00 (6-20) Glucose 217 H (78-110) mg/dL Calculated Osmolality 274.0 (267-292) mOsm/kg Calcium 9.3 (8.7-10.7) mg/dL Objective : Exam - General General Appearance: Cooperative - Respiratory Respiratory Exam: Clear to Auscultation - Bilaterally, Breathing Non Labored, Normal To Percussion - Cardiovascular Cardiovascular Exam: RRR, No Murmur, No Clicks, No Gallops - GI/Abdominal GI/Abdominal Exam: Normal Bowel Sounds, Non Tender, Non Distended, Soft - Extremities Extremities Exam: No Clubbing Present, No Edema Present, No Cyanosis Present Assessment and Plan - Patient Problems (1) Left humeral fracture Current Visit: Yes Status: Acute Comment: Status post surgery Gordon Harkins wants to follow up in 2 weeks his phone number is [phone] continue PTOT (2) Hypothyroidism Current Visit: Yes Status: Acute Comment: Continue Synthroid (3) Diabetes Current Visit: Yes Status: Chronic Comment: Patient is now on Lantus 20 units check hemoglobin A1c (4) Hypertension Current Visit: Yes Status: Chronic Comment: Continue Altace (5) Hyponatremia Current Visit: Yes Status: Acute Comment: We'll start so half normal saline at 75 an hour (6) Elevated WBCs Current Visit: Yes Status: Acute Comment: Most likely reactive repeat labs in a.m. - Assessment / Plan Additional Assessment/Plan Details: Patient was discussed at length with delinquency prevention social worker tight dietary and nursing on agreement with the above plan most likely she will be discharged to [facility] when stable Photo / Body Diagrams - Uploaded Photos Uploaded Photos:
[2016-12-02 11:34] LABS: HEMOGLOBIN A1C 13.65 % (4.2-6.0)
--- NOTE | 2016-12-02 16:47 | PT.PROG ---
Progress Note Progress Note: S. Patient was very confused and did not want to do therapy. O. Patient stood x 10 minutes to adjust shoulder brace. Patient performed standing to supine transfer and was left in bed with alarm and call light. A. Patient required frequent rest breaks during standing, she struggles with fatigue and her legs would give out during standing. Patient required max assist with bed transfer. She would benefit from skilled therapy. P. continue POC.
--- NOTE | 2016-12-02 16:50 | OT.PROG ---
Progress Note Progress Note: s: pt reported to nursing that she is confused. O: pt was seen in her room and was on EOB. She stood while shoulder brace was adjusted for comfort. Brace should be set and any future adjustments needed may be due to elbow not fully in brace. bed alarm was set A: continue to monitor pts cognitive ability. may benefit from NH facility for rehab. P: continue per plan of care.
[2016-12-02] MEDS: ATORVASTATIN 40 MG TABLET PO SCH (20:07)
[2016-12-02] MEDS: Insulin Glargine SoloStar Inj 100 UNIT/ML INSULN.PEN SUBCUT SCH (20:07)
[2016-12-03] MEDS: oxyCODONE-ACETAMINOPHEN 5-325 TAB PO PRN ×5 (00:33→20:33)
[2016-12-03 04:59] LABS: BASOPHILS # (AUTO) 0.06 10*3/UL; BASOPHILS % (AUTO) 0.3 % (0-1); EOSINOPHILS # (AUTO) 0.23 10*3/UL; EOSINOPHILS % (AUTO) 1.3 % (0-8); HEMATOCRIT 35.2 % (37.0-47.0); HEMOGLOBIN 11.8 g/dL (12.0-16.0); LYMPHOCYTES # (AUTO) 3.02 10*3/uL; MEAN CORPUSCULAR HEMOGLOBIN 30.1 PG (27-31); MEAN CORPUSCULAR HGB CONC 33.5 g/dL (33-37); MEAN CORPUSCULAR VOLUME 89.8 FL (81-99); MEAN PLATELET VOLUME 10.2 FL (7.4-12.2); MONOCYTES # (AUTO) 2.28 10*3/UL (0.3-0.8); MONOCYTES % (AUTO) 13.1 % (5-15); NEUTROPHILS # (AUTO) 11.76 10*3/UL; NEUTROPHILS % (AUTO) 67.5 % (50-80); RED BLOOD COUNT 3.92 10^6/uL (4.20-5.40)
[2016-12-03 05:08] LABS: PLATELET MORPHOLOGY COMMENT NORMAL MORPHOLOGY (NORM); RBC MORPHOLOGY COMMENT NORMAL MORPHOLOGY (NORM); WBC MORPHOLOGY COMMENT NORMAL MORPHOLOGY (NORM)
[2016-12-03 05:11] LABS: BUN/CREATININE RATIO 17.27 (6-20); SERUM ALBUMIN 2.6 g/dL (3.5-4.8)
--- NOTE | 2016-12-03 06:05 | PDOC(PROG) ---
Objective : Data - Labs CBC and BMP: 12/03/16 04:47 12/03/16 04:47 Labs - Last 24 Hours: Laboratory Results 12/02/16 12/03/16 Range/Units 11:20 04:47 WBC 17.44 H (4.8-10.8) 10^3/uL RBC 3.92 L (4.20-5.40) 10^6/uL Hgb 11.8 L (12.0-16.0) g/dL Hct 35.2 L (37.0-47.0) % MCV 89.8 (81-99) FL MCH 30.1 (27-31) PG MCHC 33.5 (33-37) g/dL RDW Std Deviation 46.1 (39-50) fL RDW Coeff of Neftali 14.3 (11.5-14.5) % Plt Count 463 H (140-350) 10*3/uL MPV 10.2 (7.4-12.2) FL Immature Gran % (Auto) 0.5 (0-5) % Neut % (Auto) 67.5 (50-80) % Lymph % (Auto) 17.3 (10-50) % [place] % (Auto) 13.1 (5-15) % Eos % (Auto) 1.3 (0-8) % Baso % (Auto) 0.3 (0-1) % Immature Gran # (Auto) 0.09 10*3/UL Neut # (Auto) 11.76 10*3/UL Lymph # (Auto) 3.02 10*3/uL [place] # (Auto) 2.28 H (0.3-0.8) 10*3/UL Eos # (Auto) 0.23 10*3/UL Baso # (Auto) 0.06 10*3/UL WBC Morphology Comment Normal morphology (NORM) Plt Morphology Comment Normal morphology (NORM) RBC Morph Comment Normal morphology (NORM) Sodium 128 L (135-145) meq/L Potassium 4.7 (3.8-5.2) meq/L Chloride 95 L (98-112) meq/L Carbon Dioxide 26 (23-33) meq/L Anion Gap 7 (5-20) BUN 19 (7-22) mg/dL Creatinine 1.1 (0.50-1.20) mg/dL Estimated GFR 49 (>60 ml/min/1.73m(2)) BUN/Creatinine Ratio 17.27 (6-20) Glucose 139 H (78-110) mg/dL Mean Blood Glucose 368.545 mg/dL Hemoglobin A1c 13.65 H (4.2-6.0) % Calculated Osmolality 269.0 (267-292) mOsm/kg Calcium 9.0 (8.7-10.7) mg/dL Total Bilirubin 1.0 (0.3-1.2) mg/dL AST 66 H (8-39) IU/L ALT 37 (9-52) IU/L Alkaline Phosphatase 201 H (38-126) IU/L Total Protein 5.1 L (6.1-8.0) g/dL Albumin 2.6 L (3.5-4.8) g/dL Globulin 2.5 (2.50-4.10) g/dL Albumin/Globulin Ratio 1.00 L (1.3-2.0) mg/g Assessment and Plan - Patient Problems (1) Left humeral fracture Current Visit: Yes Status: Acute Comment: defer to surgery (2) Hypothyroidism Current Visit: Yes Status: Acute Comment: cont replacement (3) Diabetes Current Visit: Yes Status: Chronic Comment: uncontrolled pt will most likely need to be on lantus instead of her hen home insulin Qualifiers: Diabetes mellitus type: type 2 Diabetes mellitus mcfp insulin use : with long term care phlebotomist use (4) Hypertension Current Visit: Yes Status: Chronic Comment: stable (5) Hyponatremia Current Visit: Yes Status: Acute Comment: start nss 75 cc hour (6) Elevated WBCs Current Visit: Yes Status: Acute Comment: most likely reactive check sed rate Photo / Body Diagrams - Uploaded Photos Uploaded Photos:
[2016-12-03] MEDS: Sodium Chloride 0.9% 1,000 ML IV SCH (06:57)
[2016-12-03] MEDS: Insulin Lispro Flexpen 300 UNIT/3 ML INSULN.PEN SUBCUT SCH ×3 (07:14→17:20)
[2016-12-03] MEDS: POLYETHYLENE GLYCOL 3350 17 GM POWDER PO SCH (08:37)
[2016-12-03] MEDS: METOPROLOL SUCCINATE 100 MG SR 24H TABLET PO SCH (08:38)
[2016-12-03] MEDS: RAMIPRIL 2.5 MG CAPSULE PO SCH (08:38)
[2016-12-03] MEDS: DOCUSATE 100 MG CAPSULE PO SCH ×2 (08:38→20:34)
--- NOTE | 2016-12-03 16:39 | OT.PROG ---
Progress Note Progress Note: S: pt stated that she can walk with bigger steps. O: pt was seen in the p.m and completed BP x3 with nursing present. Bed mobility completed with Deandre Michelle. pt then completed transfer from EOB to recliner although she was asked not to due to not being fully prepared safety moralez. After receiving meds pt completed transfer approx 20 ft x2. On second attempt she returned to her recliner needing cues to not run her L affected side into wall. pt needed adjustments for chair comfort x2. pt was left upright in chair with alarm on and call light within reach. A: pt completes transfer while her LE are bent and is very unsafe. Recommended that x2 man transfer while she connected to i/v pole and o2. P: continue per plan of care.
--- NOTE | 2016-12-03 16:42 | PT.PROG ---
Progress Note Progress Note: S. Patient states that she would be willing to go for a short walk. O. Patient ambulated approximately 20 feet then required a seated rest break then returned to her chair. She was left in chair with alarm and call light. A. Patient required mod to max assist x2, Patient was very unsafe with ambulation and required frequent verbal cues to be safe. Patient would continue to benefit from skilled therapy to increase strength and mobility. P. continue POC.
--- NOTE | 2016-12-03 17:16 | ORTHO.PROG ---
Last Taken Vital Signs: Vital Signs - Last Taken Temperature 97.6 F 12/03/16 16:32 Pulse Rate 90 12/03/16 16:32 Respiratory Rate 18 12/03/16 16:32 Blood Pressure 110/46 12/03/16 16:32 Pulse Ox 90 12/03/16 16:32 Subjective: Left proximal humerus reverse total shoulder doing well. She notes her pain control is reasonable but cannot get out of bed by herself or even out of a chair by herself at the current time. Objective: Examination shows that the dressing which was placed at time of surgery is clean and dry this is a [place] dressing it appears and there is no excessive bleeding that we saved her sensory examination of her extremity is intact including median ulnar radial musculocutaneous and particularly the axillary nerve looks fine she can fire her deltoid lightly she has good pulses and brisk refill Laboratory Results 12/03/16 12/03/16 Range/Units 04:47 11:44 WBC 17.44 H (4.8-10.8) 10^3/uL RBC 3.92 L (4.20-5.40) 10^6/uL Hgb 11.8 L (12.0-16.0) g/dL Hct 35.2 L (37.0-47.0) % MCV 89.8 (81-99) FL MCH 30.1 (27-31) PG MCHC 33.5 (33-37) g/dL RDW Std Deviation 46.1 (39-50) fL RDW Coeff of Neftali 14.3 (11.5-14.5) % Plt Count 463 H (140-350) 10*3/uL MPV 10.2 (7.4-12.2) FL Immature Gran % (Auto) 0.5 (0-5) % Neut % (Auto) 67.5 (50-80) % Lymph % (Auto) 17.3 (10-50) % [place] % (Auto) 13.1 (5-15) % Eos % (Auto) 1.3 (0-8) % Baso % (Auto) 0.3 (0-1) % Immature Gran # (Auto) 0.09 10*3/UL Neut # (Auto) 11.76 10*3/UL Lymph # (Auto) 3.02 10*3/uL [place] # (Auto) 2.28 H (0.3-0.8) 10*3/UL Eos # (Auto) 0.23 10*3/UL Baso # (Auto) 0.06 10*3/UL WBC Morphology Comment Normal morphology (NORM) Plt Morphology Comment Normal morphology (NORM) RBC Morph Comment Normal morphology (NORM) ESR 91 H (0-20) MM/HR Sodium 128 L (135-145) meq/L Potassium 4.7 (3.8-5.2) meq/L Chloride 95 L (98-112) meq/L Carbon Dioxide 26 (23-33) meq/L Anion Gap 7 (5-20) BUN 19 (7-22) mg/dL Creatinine 1.1 (0.50-1.20) mg/dL Estimated GFR 49 (>60 ml/min/1.73m(2)) BUN/Creatinine Ratio 17.27 (6-20) Glucose 139 H (78-110) mg/dL Calculated Osmolality 269.0 (267-292) mOsm/kg Calcium 9.0 (8.7-10.7) mg/dL Total Bilirubin 1.0 (0.3-1.2) mg/dL AST 66 H (8-39) IU/L ALT 37 (9-52) IU/L Alkaline Phosphatase 201 H (38-126) IU/L C-Reactive Protein 50.5 H (0.0-0.9) mg/dL Total Protein 5.1 L (6.1-8.0) g/dL Albumin 2.6 L (3.5-4.8) g/dL Globulin 2.5 (2.50-4.10) g/dL Albumin/Globulin Ratio 1.00 L (1.3-2.0) mg/g Vital Signs (24 hrs) Temp Pulse Resp BP Pulse Ox 12/03/16 16:32 97.6 F 90 18 110/46 90 12/03/16 15:50 118/62 12/03/16 15:45 140/67 12/03/16 15:40 156/66 12/03/16 13:28 132/48 12/03/16 12:52 97.5 F 77 18 100/28 94 12/03/16 08:04 97.0 F 87 18 137/58 90 12/03/16 05:17 93 04/21/17 04:54 97.6 F 84 20 163/78 94 12/03/16 01:00 97.3 F 75 20 155/54 95 12/02/16 21:00 98.0 F 87 20 159/67 92 12/02/16 19:00 85 Assessment: Left reverse total shoulder for comminuted proximal humerus fracture Plan: Patient will continue with physical therapy occupational therapy mobilization and assistance. Pain control. Patient will likely need shelter placement for [facility] until she is able to mobilize well enough.
[2016-12-03] MEDS: ATORVASTATIN 40 MG TABLET PO SCH (20:33)
[2016-12-03] MEDS: Insulin Glargine SoloStar Inj 100 UNIT/ML INSULN.PEN SUBCUT SCH (20:34)
[2016-12-04] MEDS: Sodium Chloride 0.9% 1,000 ML IV SCH ×2 (01:00→17:09)
[2016-12-04] MEDS: Insulin Lispro Flexpen 300 UNIT/3 ML INSULN.PEN SUBCUT SCH ×3 (07:55→16:11)
[2016-12-04 08:02] LABS: CALCIUM 8.8 mg/dL (8.7-10.7)
[2016-12-04 08:03] LABS: SERUM ALBUMIN 2.8 g/dL (3.5-4.8)
[2016-12-04] MEDS: RAMIPRIL 2.5 MG CAPSULE PO SCH (08:42)
[2016-12-04] MEDS: DOCUSATE 100 MG CAPSULE PO SCH ×2 (08:42→20:02)
[2016-12-04] MEDS: oxyCODONE-ACETAMINOPHEN 5-325 TAB PO PRN ×3 (08:42→22:03)
[2016-12-04] MEDS: METOPROLOL SUCCINATE 100 MG SR 24H TABLET PO SCH (08:42)
[2016-12-04] MEDS: POLYETHYLENE GLYCOL 3350 17 GM POWDER PO SCH (09:19)
--- NOTE | 2016-12-04 09:19 | ORTHO.PROG ---
Last Taken Vital Signs: Vital Signs - Last Taken Temperature 97.6 F 12/04/16 07:53 Pulse Rate 79 12/04/16 07:53 Respiratory Rate 20 12/04/16 07:53 Blood Pressure 140/64 12/04/16 07:53 Pulse Ox 94 12/04/16 07:53 Subjective: Patient doing well better pain control notes that the brace slides on her intermittently she is in the DonJoy gunslinger-type brace Objective: Examination shows that the patient's motor and sensory exam is intact axillary nerve is intact as well as musculocutaneous median ulnar and radial. Motor examination is also generally intact. Dressing in place dry no evidence of infection. Vital Signs (24 hrs) Temp Pulse Resp BP Pulse Ox 12/04/16 07:53 97.6 F 79 20 140/64 94 12/04/16 05:42 93 12/04/16 04:54 97.2 F 84 18 155/74 93 12/04/16 02:10 97.1 F 78 20 154/63 91 12/03/16 20:53 97.6 F 81 16 168/72 96 12/03/16 19:00 81 12/03/16 16:32 97.6 F 90 18 110/46 90 12/03/16 15:50 118/62 12/03/16 15:45 140/67 12/03/16 15:40 156/66 12/03/16 13:28 132/48 12/03/16 12:52 97.5 F 77 18 100/28 94 Assessment: Left proximal humerus fracture comminuted with reverse total shoulder procedure Slow with mobilization Plan: Physical therapy will be seeing her shortly and we will have them reviewed donning and doffing of the brace, adjustments. Patient will be transferred to rehabilitation facility in [place] for further care and treatment. Facility should contact Dr. David Mendiola for any physical therapy/ occupational therapy questions and for setting follow-up time. Dr. Harkins can be reached at [phone].
[2016-12-04 09:58] LABS: BASOPHILS # (AUTO) 0.07 10*3/UL; BASOPHILS % (AUTO) 0.6 % (0-1); EOSINOPHILS # (AUTO) 0.07 10*3/UL; EOSINOPHILS % (AUTO) 0.6 % (0-8); HEMATOCRIT 34.6 % (37.0-47.0); HEMOGLOBIN 11.3 g/dL (12.0-16.0); LYMPHOCYTES # (AUTO) 0.91 10*3/uL; MEAN CORPUSCULAR HEMOGLOBIN 29.9 PG (27-31); MEAN CORPUSCULAR HGB CONC 32.7 g/dL (33-37); MEAN CORPUSCULAR VOLUME 91.5 FL (81-99); MEAN PLATELET VOLUME 10.3 FL (7.4-12.2); MONOCYTES # (AUTO) 0.96 10*3/UL (0.3-0.8); MONOCYTES % (AUTO) 8.2 % (5-15); NEUTROPHILS # (AUTO) 9.69 10*3/UL; NEUTROPHILS % (AUTO) 82.3 % (50-80); RED BLOOD COUNT 3.78 10^6/uL (4.20-5.40)
[2016-12-04 10:01] LABS: PLATELET MORPHOLOGY COMMENT NORMAL MORPHOLOGY (NORM); RBC MORPHOLOGY COMMENT NORMAL MORPHOLOGY (NORM); WBC MORPHOLOGY COMMENT NORMAL MORPHOLOGY (NORM)
--- NOTE | 2016-12-04 10:57 | PT.PROG ---
Progress Note Progress Note: S: Pt. states she is doing ok. States [facility]. C /o minimal arm pain. Wants the arm brace readjusted. O: Treatment consisted of adjusting left shoulder brace. She then performed B LE 15x each: laq, seated marches, ankle pumps, pillow squeezes, slr, hip abd/add , sit to stands x 3. Pt. also ambulated with CASINO ENFORCEMENT AGENT to and from bathroom with use of quad cane and CGA. Pt. was placed in recliner with call button within reach. A: Pt. was able to ambulate today to and from bathroom without difficulty. She performed LE strengthening well with little difficulty. She does require encouragement to participate. P: Continue per POC to increase strength and activity tolerance unless otherwise d/c from facility. Zina Kohler, [employer]
--- NOTE | 2016-12-04 11:53 | DCSUMMARY ---
Hospitalization Summary Hospital Course: Final Discharge Diagnosis: Current Visit Problems Problem Status Priority Diagnosed Code Confusion Acute R41.0 Elevated WBCs Acute D72.829 Hyponatremia Acute E87.1 Hypothyroidism Acute E03.9 Left humeral fracture Acute S42.302A Chronic renal failure, stage 3 (moderate) Chronic N18.3 Diabetes Chronic E11.9 Hypertension Chronic I10 Diagnostic Data, Laboratory Data, and Procedures of Signifigance: History and Physical pertinent to Admission: Past Medical History Medical History: 1. Diabetes on insulin. 2. Hypertension. 3. Hypothyroidism. 4. Hyperlipidemia Surgical History: Skin cancer removed from left forearm Pertinent Family History: Diabetes in her grandfather and grandmother Past Social History: She smokes about 20 cigarettes a day, occasionally drink, no drugs. She lives in [place] sometimes her a 95-year-old mother stays with her. Her mother currently is in [place] with her other sister. Her son lives in [place] and the other daughter lives in [place]. Tobacco Use: Current Every Day Smoker Do you dip or chew tobacco: No Substance Use Type: None Alcohol Use: Occasionally Course of Hospitalization: This very nice 71-year-old female with past medical history significant for diabetes, hypertension, hypothyroidism and hyperlipidemia. The patient sustained a fall a fall last Tuesday at home she rolled out of bed and hit the left shoulder against the dresser presented to [facility] which showed comminuted displaced left proximal humerus fracture and patient had the surgery here by Dr. David Harkins she did pretty well postop continuing to do physical therapy. She did have an elevated white count which is better today most likely reactive. Also hemoglobin A1c is 13 and she does have uncontrolled diabetes she is on the insulin 50-50 which I believe this is not working for her we have started her on Lantus 20 minutes units at night with the sliding scale with meals this most likely need to be adjusted according to her diet. Evaluation by PT and OT recommended patient needs detention facility and because of logistical closeness to her family she will be transferred to [facility] I discussed the case with Jo at the [facility] paperwork was filled out the patient will be seen except a by their physician there and she will be transported by private vehicle by her family they needs to drive from [place]. Blood pressures were a little erratic that after the investigation they were taken from different parts of her body including her leg and wrist I've instructed nursing to take pressures from one site only at this point she has no complaints today and is feeling well and pretty happy to be being discharged tomorrow to continue her physical therapy no change in medication other than the Lantus On the date of discharge, the patient was examined: Gen.: No acute distress, alert, nontoxic Heart: Regular rate and rhythm, no murmurs, clicks, gallops, or rubs Lungs: Clear to auscultation bilaterally, breathing is nonlabored Abdomen/GI: Normal tones on auscultation, soft, nontender, nondistended Musculoskeletal/extremities: No clubbing, cyanosis, or edema Vitals reviewed and are listed below Vital Signs (24 hrs) Temp Pulse Resp BP Pulse Ox 12/04/16 11:12 97.3 F 84 18 129/57 91 12/04/16 07:53 97.6 F 79 20 140/64 94 12/04/16 05:42 93 12/04/16 04:54 97.2 F 84 18 155/74 93 12/04/16 02:10 97.1 F 78 20 154/63 91 12/03/16 20:53 97.6 F 81 16 168/72 96 12/03/16 19:00 81 12/03/16 16:32 97.6 F 90 18 110/46 90 12/03/16 15:50 118/62 12/03/16 15:45 140/67 12/03/16 15:40 156/66 12/03/16 13:28 132/48 12/03/16 12:52 97.5 F 77 18 100/28 94 Assessment and Plan: 1. As per discharge assessments above 2. Disposition: Transferred to [facility] 3. Condition on discharge, stable and improved. 4. Diet: regular diet 5. Activities: resume normal activities 6. Follow-Up:Left proximal humerus fracture comminuted with reverse total shoulder procedure Slow with mobilization Plan: Physical therapy will be seeing her shortly and we will have them reviewed donning and doffing of the brace, adjustments. Patient will be transferred to rehabilitation facility in [place] for further care and treatment. Facility should contact Dr. David Mendiola for any physical therapy/ occupational therapy questions and for setting follow-up time. Dr. Harkins can be reached at [phone]. 1. PCP 2. 7. Medications at the Time of Discharge: Home Medications Medication Instructions Recorded Confirmed Type Atorvastatin Calcium Lipitor 80 mg PO BEDTIME tab 12/04/16 Rx Docusate Sodium Colace 100 mg PO BID cap 12/04/16 Rx Insulin Glargine SoloStar Inj 20 unit SUBCUT BEDTIME insuln.pen 12/04/16 Rx Lantus SoloStar Inj Insulin Lispro Flexpen Inj 0 - 12 unit SUBCUT AC insuln.pen 12/04/16 Rx HumaLOG Flexpen Inj Levothyroxine Sodium Synthroid 175 mcg PO DAILY@0530 tab 12/04/16 Rx Levothyroxine Sodium Synthroid 175 mcg PO DAILY@0530 tab 12/04/16 Rx Metoprolol Succinate Toprol XL 100 mg PO DAILY tab.er.24h 12/04/16 Rx Ramipril Altace 10 mg PO DAILY cap 12/04/16 Rx oxyCODONE/APAP 5/325 Tab 1 - 2 tab PO Q4H PRN #20 tab 12/04/16 Rx Percocet 5/325 Tab 8. Time, care, counseling and coordination of care for this discharge is greater than 30 minutes. Exam - Vitals Vital Signs: Vital Signs Temperature 97.3 F Temperature Source Temporal Artery Scan Pulse Rate [Apical] 92 Pulse Rate [Pulse Oximeter] 84 Pulse Rate 77 Respiratory Rate 18 Blood Pressure [Right Arm] 129/57 Blood Pressure 139/77 Pulse Ox 91 Oxygen Flow Rate 2 Oxygen Flow Rate 3 Oxygen Delivery Method Nasal Cannula Height 5 ft 1 in Weight 93.531 kg Patient Problems - Patient Problem List (1) Left humeral fracture Current Visit: Yes Status: Acute (2) Hypothyroidism Current Visit: Yes Status: Acute (3) Diabetes Current Visit: Yes Status: Chronic Qualifiers: Diabetes mellitus type: type 2 Diabetes mellitus alf insulin use : with terminal operator use (4) Hypertension Current Visit: Yes Status: Chronic (5) Hyponatremia Current Visit: Yes Status: Acute (6) Elevated WBCs Current Visit: Yes Status: Acute
[2016-12-04] MEDS: Insulin Glargine SoloStar Inj 100 UNIT/ML INSULN.PEN SUBCUT SCH (20:02)
[2016-12-04] MEDS: ATORVASTATIN 40 MG TABLET PO SCH (20:02)
[2016-12-05] MEDS: Sodium Chloride 0.9% 1,000 ML IV SCH (06:44)
[2016-12-05] MEDS: Insulin Lispro Flexpen 300 UNIT/3 ML INSULN.PEN SUBCUT SCH (06:45)
[2016-12-05 06:59] VITALS: RESP 16; TEMP 97.8
[2016-12-05] MEDS: DOCUSATE 100 MG CAPSULE PO SCH (08:56)
[2016-12-05] MEDS: oxyCODONE-ACETAMINOPHEN 5-325 TAB PO PRN (08:56)
[2016-12-05] MEDS: RAMIPRIL 2.5 MG CAPSULE PO SCH (08:57)
[2016-12-05] MEDS: METOPROLOL SUCCINATE 100 MG SR 24H TABLET PO SCH (08:57)
--- NOTE | 2016-12-06 10:47 | OT AM DAY ---
Diagnosis : Left Humeral Fracture AM - Occupational Therapy S: The patient was not feeling very good this morning. O: Today we completed right upper extremity functional activities while sitting on chair. A: The patient participated in activities well. P: Continue seeing patient BID during the week and one time per day over the weekend for upper extremity strengthening, ADLs, and overall functional mobility. FAHAD
--- NOTE | 2016-12-06 12:49 | OT AM DAY ---
Diagnosis : Left Humeral Fracture AM - Occupational Therapy S: The patient reports that her brace isn't fitting her too well and she has a lot of swelling. She is concerned about going home. She is looking into 24-hour care at a shelter. The patient states that she does not have help that can come and help her and her family does not live close to her. 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 She states she typically did everything by herself prior to this. O: The patient was in her [employer] brace. She has Grade II-III swelling in the left upper extremity. She has a significant amount of bruising and edema. The patient's x-rays were reviewed with her after the reverse shoulder had been placed in the shoulder. She stated that she didn't know exactly what had happened to her so education about the injury was given. Passive range of motion of the wrist and the elbow were completed along with active range of motion x2 minutes and active assistive range of motion of the elbow. We did very light passive range of motion of the left upper extremity secondary to the edema and bruising. The patient had lymphedema taping on the left side to help decrease the edema in the arm. We had the patient stand and complete some marching for some balance while hanging onto a chair with her right arm and then we tried some pendulum motion with the left arm; however, it did hurt to bend over so we did not have her complete this activity. The patient's brace was adjusted to fit her better. A: The patient is still needing max assist to don brace. She requires contact guard to min assist for balance. We will try to assist her with improving her independence with donning her brace and functional activities. P: Continue seeing patient BID during the week and one time per day over the weekend for upper extremity strengthening, ADLs, and overall functional mobility. FAHAD
--- NOTE | 2016-12-06 14:19 | OT AM DAY ---
Diagnosis : Left Humeral Fracture AM - Occupational Therapy S: The patient's family and nursing staff reported that the patient will be going to [facility] here soon. The patient reported that she wants to get dressed. O: The patient was sitting in chair when the therapist arrived. Her family members were educated on how to don and doff the patient's brace. The patient states that the brace has been hurting her. Some adjustments were made. The patient does need some adaptations secondary to having a larger arm and body type. The patient was able to don shirt with max assist on the left side. The patient received elbow and wrist range of motion. A: The patient needs assistance for ADLs. Her range of motion in her elbow and hand are approximately 80%. She does have Grade II swelling in the left upper extremity and would benefit from further therapy once she returns to [facility]. P: Continue seeing patient BID during the week and one time per day over the weekend until discharge. FAHAD
== END 2016-12-05 09:24 | disposition home or self-care (01) | DRG 483 ==
LOC: MED/SURG 11-29 12:43 → OPS 12-01 06:05 → MED/SURG 12-01 11:59
PROVIDERS: ADMIT Internal Medicine; ATTEND Internal Medicine
PROC: 0RRK00Z Replacement of Left Shoulder Joint with Reverse Ball and Socket Synthetic Substitute, Open Approach (ICD-10-PCS; principal; 2016-12-01 07:30)
DX: S42.202A Unspecified fracture of upper end of left humerus, initial encounter for closed fracture (principal); E87.1 Hypo-osmolality and hyponatremia; E11.9 Type 2 diabetes mellitus without complications; I10 Essential (primary) hypertension; E03.9 Hypothyroidism, unspecified; D72.829 Elevated white blood cell count, unspecified; E78.5 Hyperlipidemia, unspecified; N18.3 Chronic kidney disease, stage 3 (moderate); R41.0 Disorientation, unspecified; W06.XXXA Fall from bed, initial encounter
CPT/HCPCS: 36415; 70450; 73020; 80048; 80053; 82607; 82948; 83036; 85025; 85610; 85652; 86140; 86850; 86900; 86901; 93005; 93010; 94150; 94761; 97110; 97112; 97161; 97166; 97530; 97535; J0690; J0735; J2250; J2270; J2405; J3010; J3370; J7030; J7050; J7120